=== PATIENT | male | born 1970 | race Two or more races ===

== ENCOUNTER 2017-05-25 06:00 | Emergency (ER) | payer BC, MEDICAID ==
[~2017-05-25] VITALS: Ht 170.2 cm; Wt 70.3 kg
[~2017-05-25 06:00] MED LIST: CYCLOBENZAPRINE10 MG ORAL; IBUPROFEN600 MG ORAL; Ketorolac 30mg Inj ONE
--- NOTE | 2017-05-25 06:26 | Emergency Room Report ---
History of Present Illness General Chief Complaint: Laceration Source: Patient Present Illness HPI Is a 47-year-old male who presents with head injury and shoulder pain. He said he was drinking last night was very intoxicated. He does remember what happened. He does remember that his pick enema. He must have fallen. He came in because he had trauma to his head and shoulder pain. Pain is 5/10. No nausea no vomiting. No fever or chills. No other injury. Allergies: Coded Allergies: No Known Allergies (Unverified , 04/02/16) Patient History Past Medical History: see triage record, old chart reviewed Past Surgical History: none Pertinent Family History: none Social History: Denies: smoking Immunizations: other Reviewed Nursing Documentation: PMH: Agreed, PSxH: Agreed Nursing Documentation-PMH Past Medical History: No Stated History Hx Neurological Problems: Yes - mirgaine Review of Systems Eye: Denies: eye pain, blurred vision ENT: Denies: ear pain, nose congestion, throat swelling Respiratory: Denies: cough, shortness of breath Cardiovascular: Denies: chest pain, palpitations Gastrointestinal: Denies: abdominal pain, diarrhea, nausea, vomiting Musculoskeletal: Denies: back pain, joint pain Skin: Denies: rash Neurological: Denies: headache, numbness Endocrine: Denies: increased thirst, increased urine Hematologic/Lymphatic: Denies: easy bruising All Other Systems: negative except mentioned in HPI Physical Exam Vital Signs Date Time Temp Pulse Resp B/P (MAP) Pulse Ox O2 Delivery O2 Flow Rate FiO2 05/25/17 06:09 97.9 63 18 150/90 98 vitals with hypertension Sp02 EP Interpretation: reviewed, normal General Appearance: well appearing, no apparent distress, alert Head: normocephalic, other - 1 cm gaping laceration to the left eyebrow/upper eyelid area. No foreign body. Eyes: bilateral eye PERRL, bilateral eye EOMI ENT: hearing grossly normal, normal pharynx Neck: full range of motion, supple, no meningismus Respiratory: chest non-tender, lungs clear, normal breath sounds Cardiovascular #1: regular rate, rhythm, no murmur Gastrointestinal: normal bowel sounds, non tender, no mass, no organomegaly, no bruit, non-distended Musculoskeletal: back normal, gait/station normal, normal range of motion, other - Mild tenderness to the left shoulder. Full range of motion. Sensation normal. Neurologic: alert, oriented x3 Psychiatric: mood/affect normal Skin: warm/dry Medical Decision Making Diagnostic Impression: Primary Impression: Head injury, acute Qualified Codes: S09.90XA - Unspecified injury of head, initial encounter Additional Impressions: Laceration of eyebrow, left Qualified Codes: S01.112A - Laceration without foreign body of left eyelid and periocular area, initial encounter Contusion of left shoulder, initial encounter ER Course Patient with head injury. We'll get x-ray of shoulder and CT of head. I will sign this patient out to Dr. Honeycutt for final disposition. CT negative, we' ll DC home. Last Vital Signs Date Time Temp Pulse Resp B/P (MAP) Pulse Ox O2 Delivery O2 Flow Rate FiO2 05/25/17 06:09 97.9 63 18 150/90 98 Status: improved Disposition: HOME, SELF-CARE Condition: Stable Patient Instructions: Facial Laceration Additional Instructions: Abstain from drinking to excess. Followup with your DrTaz in 7 days. Return if symptom worsen. CAN CAVANAUGH M.D. May 25, 2017 06:26
[2017-05-25 08:11] VITALS: BP 142/86
[2017-05-25] MEDS ORDERED: ACETAMINOPHEN-1 EAC1 ORAL (08:25)
[2017-05-25] MEDS ORDERED: IBUPROFEN600 MG ORAL (08:25)
--- NOTE | 2017-05-25 08:26 | Diagnostic Imaging Report ---
Indications: Head trauma, pain Technique: Continuous helical CT imaging of the brain was performed with automatic exposure control on a Siemens sensation [address] scanner. Axial and coronal images were reconstructed at 5 mm slice thickness and interval. CTDI volume(s): 70 mGy Total DLP: 1466 mGy-cm Findings: Comparison: None. Intracranial anatomy is unremarkable. No evidence of mass or hemorrhage, other attenuation abnormality, mass effect, midline shift, hydrocephalus or increased intracranial pressure. Bone window images are unremarkable. Visualized paranasal sinuses and mastoid air cells are clear. Left periorbital soft tissues are swollen and increased attenuation. No associated gas or foreign body. Left globe appears intact. IMPRESSION: Left periorbital soft tissue swelling/hematoma Otherwise negative noncontrast CT scan of the brain --no other evidence of acute injury. This correlates with [facility] preliminary report. The CT scanner at [facility] is accredited by the [employer] and the scans are performed using protocols designed to limit radiation exposure to as low as reasonably achievable to attain images of sufficient resolution adequate for diagnostic evaluation.
--- NOTE | 2017-05-25 08:41 | Diagnostic Imaging Report ---
Indications: Left shoulder trauma, pain Technique: 3 views left shoulder. Findings: Comparison: None Circumscribed osseous densities overlie the tear aspect of the left humeral head and neck. No definite acute, dislocation, joint space widening , surrounding soft tissue swelling/foreign body/gas, or other acute changes are identified. IMPRESSION: Osseous densities adjacent to proximal humerus, nonspecific, may represent old unfused fracture fragments, atypical degenerative spurring, synovial osteochondromatosis, heterotopic ossification. Superimposed acute fracture not entirely excludable. If clinically indicated, consider CT scan for further evaluation..
[2017-05-25 08:42] VITALS: BP 139/81
--- NOTE | 2017-05-25 09:19 | Emergency Room Report ---
History of Present Illness General Chief Complaint: Laceration Source: Patient Present Illness Allergies: Coded Allergies: No Known Allergies (Unverified , 04/02/16) Nursing Documentation-[facility] Past Medical History: No Stated History Hx Neurological Problems: Yes - mirgaine Physical Exam Vital Signs Date Time Temp Pulse Resp B/P (MAP) Pulse Ox O2 Delivery O2 Flow Rate FiO2 05/25/17 06:09 97.9 63 18 150/90 98 05/25/17 08:11 Room Air Procedures Splinting Splinting : Consent: Verbal Pre-Made Type: L shoulder sling Pre-Proc Neuro Vasc Exam: normal Post-Proc Neuro Vasc Exam: normal Patient Tolerated: Well Complications: None Laceration/Wound Repair Laceration/Wound Repair : Consent: Verbal Wound Location: head Wound's Depth, Shape: superficial, linear Wound Explored: clean Betadine Prep?: Yes Wound Debrided: minimal Wound Repaired With: Dermabond Layer Closure?: No Sterile Dressing Applied?: Yes Splint Applied?: No Sling Applied?: No Patient Tolerated: Well Complications: None Medical Decision Making Diagnostic Impression: Primary Impression: Head injury, acute Qualified Codes: S09.90XA - Unspecified injury of head, initial encounter Additional Impressions: Contusion of left shoulder, initial encounter Laceration of eyebrow, left Qualified Codes: S01.112A - Laceration without foreign body of left eyelid and periocular area, initial encounter ER Course Hospital Course 47-year-old M presents to ED complaining of L shoulder pain, lacration above L eyebrow s/p fall Clinical course Patient initially seen and evaluated by Patricia; please see his note for full history and physical CT head unremarkable Xray L shoulder no acute fx identified - placed in shoulder sling Wound irrigated. Laceration above the eyebrow to superficial and will repaired using Dermabond Diagnosis - head injury, L shoulder contusion, laceration of L eyebrow Stable and discharged to home with prescription for Tylenol #3, motrin. apply ice, keep elevated. weight bear as tolerated. Followup with PMD. Return to ED if symptoms recur or worsen Other X-Ray Diagnostic Results Other X-Ray Diagnostic Results : X-Ray ordered: L shoulder # of Views/Limited Vs Complete: 3 View Indication: Pain EP Interpretation: Yes Interpretation: no dislocation, no soft tissue swelling, no fractures Impression: No acute disease Interpreting ER Provider: Electronically signed by Mike Honeycutt MD CT/MRI/US Diagnostic Results CT/MRI/US Diagnostic Results : Imaging Test Ordered: CT Head Impression no acute process Last Vital Signs Date Time Temp Pulse Resp B/P (MAP) Pulse Ox O2 Delivery O2 Flow Rate FiO2 05/25/17 08:42 98.4 71 19 139/81 97 Room Air Status: improved Disposition: HOME, SELF-CARE Condition: Stable Scripts Acetaminophen With Codeine (T#3) (TYLENOL #3 TAB*) Y Tab 1 TAB ORAL Q8H Y for For Pain, #20 TAB Prov: MIKE HONEYCUTT M.D. 05/25/17 Ibuprofen* (MOTRIN*) 600 Mg Tablet 600 MG ORAL Q8H Y for For Pain, #30 TAB 0 Refills Prov: MIKE HONEYCUTT M.D. 05/25/17 Referrals: MISHEL FRIAS (PCP) Patient Instructions: Facial Laceration Additional Instructions: Abstain from drinking to excess. Followup with your Dr. in 7 days. Return if symptom worsen. MIKE HONEYCUTT M.D. May 25, 2017 09:19
== END 2017-05-25 08:43 | disposition home or self-care (01) ==
LOC: EMR 06:31
DX: S09.90XA Unspecified injury of head, initial encounter (principal); S01.112A Laceration without foreign body of left eyelid and periocular area, initial encounter; S40.012A Contusion of left shoulder, initial encounter; W19.XXXA Unspecified fall, initial encounter; Y93.9 Activity, unspecified; Y99.9 Unspecified external cause status; G43.909 Migraine, unspecified, not intractable, without status migrainosus
CPT/HCPCS: 12011; 70450; 73030; 99284; J1885